=== PATIENT | male | born 1955 | race Caucasian/White ===

== ENCOUNTER 2016-10-22 09:44 | Emergency (ER) | payer SELFPAY ==
[~2016-10-22] VITALS: Ht 188 cm; Wt 136.1 kg
[2016-10-22] MEDS ORDERED: HYDR-2758 PO (10:11)
--- NOTE | 2016-10-22 10:11 | PHYS DOC ---
Adult General Chief Complaint Chief Complaint: MECHANICAL FALL HPI HPI 60-year-old male presenting to the emergency department today after falling. 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 He sustained an abrasion to his left knee and his right elbow but mainly complains of left shoulder pain. The pain in his left shoulder is moderate nonradiating intermittent and without alleviating factors. He denies any other injuries. He reports hitting his head but denies loss of consciousness and denies being on blood thinners. He denies neck pain. Review of systems is negative for chest pain shortness of breath abdominal pain fevers chills. All other review of systems is negative unless otherwise noted in history of present illness. ED course: 60-year-old male presenting to the emergency department today after sustaining a mechanical fall and injuring his left shoulder. On evaluation the patient's left knee and right elbow the patient has normal range of motion with nontender joints. No evidence of fracture dislocation there. Inspecting the patient's left shoulder the patient has pain with minimal range of motion of the left shoulder. Nontender clavicle. No crepitus on palpation of the skin. Patient is a nontender cervical spine with normal range of motion. Otherwise the remainder the exam is unremarkable. Tetanus updated. X-ray obtained a left shoulder along with oral administration of pain medications. [place] head CT rules and NEXUS neck CT rules applied. No imaging required. X-rays of the left shoulder show a humeral fracture. I discussed the case with Dr. Ellison at approximately 10:25 AM who recommended the patient be placed in a shoulder immobilizer to follow-up with orthopedic surgeon back in the patient's home town for surgical evaluation. The patient may require a CT of the shoulder which we will defer to the home town orthopedic surgeon. The pt was to return if their symptoms worsened or if they were concerned for any reason. Face-to- face discharge instructions and return precautions were given. Patient's questions were answered to their satisfaction. Patient is comfortable plan. Review of Systems Review of Systems SEE ABOVE. Current Medications Current Medications Current Medications Medications (Trade) Dose Ordered Sig/Diaz Start Time Stop Time Status Last Admin Dose Admin Acetaminophen/ Hydrocodone Bitart (Lortab 5/325) 2 tab 1X ONCE 10/22/16 10:15 10/22/16 10:16 DC Diphtheria/ Tetanus/Acell Pertussis (Boostrix) 0.5 ml ONCE ONCE 10/22/16 10:15 10/22/16 10:16 DC Allergies Allergies Allergies Coded Allergies Type Severity Reaction Last Updated Verified No Known Drug Allergies 10/22/16 No Physical Exam Physical Exam SEE ABOVE Constitutional: Well developed, well nourished, no acute distress, non-toxic appearance. [] HENT: Normocephalic, atraumatic, bilateral external ears normal, oropharynx moist, no oral exudates, nose normal. [] Eyes: PERRLA, EOMI, conjunctiva normal, no discharge. [] Neck: Normal range of motion, no tenderness, supple, no stridor. [] Cardiovascular:Heart rate regular rhythm, no murmur [] Lungs & Thorax: Bilateral breath sounds clear to auscultation [] Abdomen: Bowel sounds normal, soft, no tenderness, no masses, no pulsatile masses. [] Skin: Warm, dry, no erythema, no rash. [] Back: No tenderness, no CVA tenderness. [] Extremities: SEE ABOVE Neurologic: Alert and oriented X 3, normal motor function, normal sensory function, no focal deficits noted. [] Psychologic: Affect normal, judgement normal, mood normal. [] Current Patient Data Vital Signs Vital Signs Date Time Temp Pulse Resp B/P (MAP) Pulse Ox O2 Delivery O2 Flow Rate FiO2 10/22/16 09:55 98.1 64 18 143/68 (93) 95 Room Air 98.1 EKG EKG [] Radiology/Procedures Radiology/Procedures [] Course & Med Decision Making Course & Med Decision Making Pertinent Labs and Imaging studies reviewed. (See chart for details) [] Dragon Disclaimer Dragon Disclaimer This electronic medical record was generated, in whole or in part, using a voice recognition dictation system. Departure Departure Impression: Primary Impression: Left shoulder pain Additional Impressions: Abrasion of knee, left Abrasion of elbow, right Fall Disposition: 01 HOME, SELF-CARE Condition: STABLE Referrals: JORGE L ELLISON MD, MICHAEL R MD Patient Instructions: Pain Medicine Instructions, Shoulder Pain Additional Instructions: Thank you for allowing us to participate in your care today. Followup with your primary care physician in 3 days if your symptoms do not improve. Call your Primary Doctor tomorrow and inform them of your visit today. If you do not have a primary care provider you can ask for a list of our primary care providers. Return to the emergency department you have any new or concerning findings. This should be evaluated by the primary care physician and any necessary consulting services for continued management within a few days after discharge. Return to emergency room if you have any new or concerning symptoms including but not limited to fever, chills, nausea, vomiting, intractable pain, any new rashes, chest pain, shortness of air, uncontrolled bleeding, difficulty breathing, and/or vision loss. You may have been prescribed medication that can change in your level of thinking and ability to operate machinery. These medications include hydrocodone and Ativan. Also, Benadryl has been known to do this as well. Be sure to check with your pharmacist and ask if the medications you've prescribed can affect your level of consciousness. I recommend not operating heavy machinery or driving while on medication such as these. Scripts Hydrocodone Bit/Acetaminophen (HYDROCODONE-APAP 5-325 ) 1 Each Tablet 1 TAB PO PRN Q6HRS Y for PAIN, #15 TAB 0 Refills Be careful as this medication may cause you to be drowsy or tired. Do not drive on this medication. Prov: THERESA ECKERT MD 10/22/16 Problem Qualifiers THERESA ECKERT MD Oct 22, 2016 10:11
[2016-10-22] MEDS ORDERED: ALLO100T (10:14)
[2016-10-22] MEDS ORDERED: MELO7.5T29 (10:14)
[2016-10-22] MEDS ORDERED: HYDROcodone/APAP 5/325MG 1 TAB TABLET PO ONE (10:15)
[2016-10-22] MEDS ORDERED: DIPHTH,PERTUSS(ACELL),TET TOX 0.5 ML DISP.SYRIN. VAX IM ONE (10:15)
--- NOTE | 2016-10-22 10:22 | RAD ---
Indication fall, pain. AP and Y views of the left shoulder were obtained. There is a comminuted fracture involving the proximal humerus. There are both transverse and vertical fracture components.. Transverse fracture is the humeral neck. Vertical fracture components involve predominantly the greater tubercle extending to the head. There is no significant displacement of fracture fragments. IMPRESSION: Traumatic and acute fractures involving the left humeral neck and head
[2016-10-22 11:07] VITALS: BP 189/90
== END 2016-10-22 11:08 | disposition home or self-care (01) ==
LOC: ER 09:44
DX: S42.292A Other displaced fracture of upper end of left humerus, initial encounter for closed fracture (principal); S80.212A Abrasion, left knee, initial encounter; S50.311A Abrasion of right elbow, initial encounter; W18.39XA Other fall on same level, initial encounter; Y93.01 Activity, walking, marching and hiking; Y92.89 Other specified places as the place of occurrence of the external cause; Y99.8 Other external cause status
CPT/HCPCS: 29105; 73030; 90471; 90715; 99284-25